=== PATIENT | female | born 1975 | race Caucasian/White ===

== ENCOUNTER 2017-05-02 08:07 | Emergency (ER) | payer OTHER ==
[~2017-05-02] VITALS: Ht 165.1 cm; Wt 90.0 kg
[~2017-05-02 08:07] MED LIST: ALBU17I INH; AMOX500T PO; B VITAMINS PO; DICY20TA10 PO; DILA100C PO; FOLI1 PO; IBUP100S PO; IMOD2TAB PO; LITH300 PO; SERO200T PO; TOPA200T4 OR; ZOLO100T OR; [UNRECOGNIZED DRUG - CODE] PO
[2017-05-02 08:15] VITALS: BP 143/76; PULSE 87; RESP 18; TEMP 99.3; O2SAT 100
[2017-05-02] MEDS ORDERED: SODIUM CHLOR 0.9% 1000 ML INJ 1,000 ML IV ONE (08:18)
--- NOTE | 2017-05-02 08:26 | PD ---
HPI Chief Complaint: Seizure Time Seen by Provider: 08:22 Travel History International Travel<30 days: No Contact w/Intl Traveler<30days: No History of Present Illness HPI 41yo F with PMH of seizure disorder presents to the ED with c/o episode of seizure a few hours ago. Said she has been sleeping in a car and has been out of her depakote for 3 days. Does not remember the dose of her depakote. Pt was sleeping in her car when her associate professor of law witnessed the seizure. Denies any head trauma, fever, chest pain, sob, vomiting, abdominal pain, focal weakness or numbness. Pt has not been feeling well and has not eaten for 3 days. Said she feels a little nauseous. Also with some lower back pain that is worst with movement and thinks it is from sleeping in the car. Pt said she was admitted to [facility] recently for pyelonephritis. 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) Allergies-Medications (Allergen,Severity, Reaction): Coded Allergies: codeine (Unverified Allergy, Severe, 05/02/17) Reported Meds & Prescriptions Reported Meds & Active Scripts Active Dicyclomine Hcl (Dicyclomine HCl) 20 Mg Tab 20 Mg PO 2 TABS BID Proventil Mdi (Albuterol Sulfate) 17 Gm Aero 1 Puff INH Q6 Loperamide Hcl (Loperamide HCl) 2 Mg Tab 2 Mg PO QIDPRN Folate 1 Mg Tab (Folic Acid) 1 Mg Tab 1 Mg PO DAILY [b12 vitamins] 1 Tab PO BID Topamax (Topiramate) 200 Mg Tab 200 Mg OR DAILY Dilantin 100 Mg Vial (Phenytoin Sodium) 100 Mg/2 Ml Inj 100 Mg PO 2 CAPS AM, 3 CAPS PM Reported Motrin (Ibuprofen) 100 Mg/5 Ml Susp 200 Mg PO DIRECTED Amoxicillin 500 Mg Tab 500 Mg PO DIRECTED [place] Carbonate 300 Mg Tab 300 Mg PO TID Zoloft (Sertraline Hcl) 100 Mg Tab 100 Mg OR BID Seroquel (Quetiapine Fumarate) 200 Mg Tab 200 Mg PO HS Dicyclomine Hcl (Dicyclomine HCl) 20 Mg Tab 40 Mg PO BID Dilantin Kapseals (Phenytoin Sodium) 100 Mg Cap 300 Mg PO HS Dilantin Kapseals (Phenytoin Sodium) 100 Mg Cap 200 Mg PO DAILY Review of Systems Except as stated in HPI: all other systems reviewed are Neg Physical Exam Narrative GENERAL: 41yo F in mild distress. SKIN: Focused skin assessment warm/dry. HEAD: Atraumatic. Normocephalic. EYES: Pupils equal and round at 3mm bilaterally. EOMI. ENT: No nasal bleeding or discharge. Mucous membranes pink and moist. NECK: Trachea midline. No JVD. No midline cervical spine ttp. CARDIOVASCULAR: Regular rate and rhythm. No murmur appreciated. RESPIRATORY: No accessory muscle use. Clear to auscultation. Breath sounds equal bilaterally. GASTROINTESTINAL: Abdomen soft, non-tender, nondistended. No rebound tenderness or guarding. BACK: No midline thoracic or lumbar ttp. MUSCULOSKELETAL: No obvious deformities. No clubbing. No cyanosis. No edema. NEUROLOGICAL: Awake and alert. No obvious cranial nerve deficits. Motor grossly within normal limits. Sensation intact. Normal speech. Data Data Last Documented VS Vital Signs Date Time Temp Pulse Resp B/P (MAP) Pulse Ox O2 Delivery O2 Flow Rate FiO2 05/02/17 08:15 99.3 87 18 143/76 (98) 100 Orders Orders Complete Blood Count With Diff (05/02/17 08:18) Valproic Acid (Depakene) (05/02/17 08:18) Blood Glucose (05/02/17 08:18) Comprehensive Metabolic Panel (05/02/17 08:18) Sodium Chlor 0.9% 1000 Ml Inj (Ns 1000 M (05/02/17 08:18) Ua Includes Microscopic (05/02/17 08:18) Ed Urine Pregnancytest Poc (05/02/17 08:18) Magnesium (Mg) (05/02/17 08:18) Ondansetron Inj (Zofran Inj) (05/02/17 08:30) Ceftriaxone Inj (Rocephin Inj) (05/02/17 11:30) Divalproex Er (Depakote Er) (05/02/17 11:30) Ketorolac Inj (Toradol Inj) (05/02/17 11:30) Labs Laboratory Tests Test 05/02/17 08:40 White Blood Count 3.5 TH/MM3 Red Blood Count 4.27 MIL/MM3 Hemoglobin 13.6 GM/DL Hematocrit 39.3 % Mean Corpuscular Volume 92.1 FL Mean Corpuscular Hemoglobin 31.8 PG Mean Corpuscular Hemoglobin Concent 34.5 % Red Cell Distribution Width 14.3 % Platelet Count 180 TH/MM3 Mean Platelet Volume 8.1 FL Neutrophils (%) (Auto) 61.9 % Lymphocytes (%) (Auto) 21.8 % Monocytes (%) (Auto) 10.7 % Eosinophils (%) (Auto) 4.2 % Basophils (%) (Auto) 1.4 % Neutrophils # (Auto) 2.1 TH/MM3 Lymphocytes # (Auto) 0.8 TH/MM3 Monocytes # (Auto) 0.4 TH/MM3 Eosinophils # (Auto) 0.1 TH/MM3 Basophils # (Auto) 0.0 TH/MM3 CBC Comment DIFF FINAL Differential Comment Urine Color YELLOW Urine Turbidity CLEAR Urine pH 5.0 Urine Specific [place] 1.011 Urine Protein NEG mg/dL Urine Glucose (UA) NEG mg/dL Urine Ketones TRACE mg/dL Urine Occult Blood LARGE Urine Nitrite POS Urine Bilirubin NEG Urine Urobilinogen LESS THAN 2.0 MG/DL Urine Leukocyte Esterase NEG Urine RBC /hpf Urine WBC 2 /hpf Urine Squamous Epithelial Cells <1 /hpf Urine Bacteria RARE /hpf Urine Hyaline Casts 1 /lpf Blood Urea Nitrogen 6 MG/DL Creatinine 0.52 MG/DL Random Glucose 80 MG/DL Total Protein 7.0 GM/DL Albumin 3.2 GM/DL Calcium Level 8.4 MG/DL Magnesium Level 2.0 MG/DL Alkaline Phosphatase 134 U/L Aspartate Amino Transf (AST/SGOT) 39 U/L Alanine Aminotransferase (ALT/SGPT) 21 U/L Total Bilirubin 1.2 MG/DL Sodium Level 138 MEQ/L Potassium Level 4.2 MEQ/L Chloride Level 104 MEQ/L Carbon Dioxide Level 25.5 MEQ/L Anion Gap 9 MEQ/L Estimat Glomerular Filtration Rate 130 ML/MIN Valproic Acid (Depakene) Level 3 MCG/ML [facility] Medical Decision Making Medical Screen Exam Complete: Yes Emergency Medical Condition: Yes Differential Diagnosis Seizure secondary to noncompliance with medication vs. homelessness vs. dehydration vs. electrolyte abnormality vs. UTI Narrative Course 41yo F with seizure disorder here after having a seizure at home. Pt has not been taking her depakote for 3 days. No signs of head trauma. Pt has lower back pain from sleeping in a car. No red flags. Labs reviewed, WBC 3.5, at baseline. AST and alk phos mildly elevated. Pt has no abdominal pain. Valproic acid level low which is expected. Pt given depakote 500mg PO. She does not remember her exact dose. UA positive for nitrite. Pt given ceftriaxone. Pt also given toradol for back pain with improvement. materials manager called to give her resources. Return precautions given. Diagnosis Primary Impression: Seizure Additional Impression: UTI (urinary tract infection) Qualified Codes: N39.0 - Urinary tract infection, site not specified; R31.9 - Hematuria, unspecified Patient Instructions: General Instructions Departure Forms: Tests/Procedures Additional Instructions: Please follow up with your primary care physician in 3-7 days. Return to the ED if symptoms worsen. Med/Other Pt SpecificInfo: Prescription(s) given Scripts Divalproex (Depakote DR) 500 Mg Tabdr 500 MG PO BID for Control Seizures, #30 TAB 0 Refills Prov: Cele Oliva DO 05/02/17 Nitrofurantoin Monohydrate Macrocrystals (Macrobid) 100 Mg Capsule 100 MG PO BID for Infection for 5 Days, #10 CAP 0 Refills Prov: Cele Oliva DO 05/02/17 Disposition: 01 DISCHARGE HOME Condition: Stable Cele Oliva DO May 02, 2017 08:26
[2017-05-02] MEDS ORDERED: ONDANSETRON HCL 4 MG/2 ML VIAL IV PUSH ONE (08:30)
[2017-05-02 09:14] LABS: AUTOMATED NEUTROPHIL # 2.1 TH/MM3 (1.8-7.7); BASOPHIL % 1.4 % (0.0-2.0); EOSINOPHIL # 0.1 TH/MM3 (0-0.4); EOSINOPHIL % 4.2 % (0.0-4.0); HEMATOCRIT 39.3 % (35.0-46.0); HEMOGLOBIN 13.6 GM/DL (11.6-15.3); LYMPH % 21.8 % (9.0-44.0); LYMPHOCYTE # 0.8 TH/MM3 (1.0-4.8); MEAN CELL VOLUME 92.1 FL (80.0-100.0); MEAN CORPUSCULAR HEMOGLOBIN 31.8 PG (27.0-34.0); MEAN CORPUSCULAR HGB CONC 34.5 % (32.0-36.0); MEAN PLATELET VOLUME 8.1 FL (7.0-11.0); MONO % 10.7 % (0.0-8.0); MONOCYTE # 0.4 TH/MM3 (0-0.9); NEUT % 61.9 % (16.0-70.0); PLATELET COUNT 180 TH/MM3 (150-450); RED BLOOD COUNT 4.27 MIL/MM3 (4.00-5.30); RED CELL DISTRIBUTION WIDTH 14.3 % (11.6-17.2); WHITE BLOOD COUNT 3.5 TH/MM3 (4.0-11.0)
[2017-05-02 09:20] LABS: BACTERIA, URINE RARE /hpf; BILIRUBIN, URINE NEG (NEG); BLOOD, URINE LARGE (NEG); GLUCOSE,URINE NEG (NEG); HYALINE CAST, URINE 1 /lpf (RARE); KETONE, URINE TRACE mg/dL (NEG); NITRITE,URINE POS (NEG); SQUAMOUS EPITHELIAL CELL URINE <1 /hpf (0-5); URINE COLOR YELLOW (YELLW/STRAW); URINE LEUKOCYTE ESTERASE NEG (NEG)
[2017-05-02 09:33] LABS: ALT (GPT) 21 U/L (10-53)
[2017-05-02 09:34] LABS: ALBUMIN 3.2 GM/DL (3.4-5.0); AST (GOT) 39 U/L (15-37); BICARBONATE 25.5 MEQ/L (21.0-32.0); BLOOD UREA NITROGEN 6 MG/DL (7-18); CALCIUM 8.4 MG/DL (8.5-10.1); CHLORIDE 104 MEQ/L (98-107); CREATININE 0.52 MG/DL (0.50-1.00); GLOMERULAR FILTRATION RATE 130 ML/MIN (>89); GLUCOSE,RANDOM 80 MG/DL (74-106); SODIUM (NA) 138 MEQ/L (136-145)
[2017-05-02 09:36] LABS: ALKALINE PHOSPHATASE 134 U/L (45-117); TOTAL BILIRUBIN ADULT 1.2 MG/DL (0.2-1.0)
[2017-05-02] MEDS ORDERED: cefTRIAXone INJ 1,000 MG in SODIUM CHLORIDE 0.9% INJ 100 ML IV ONE (11:30)
[2017-05-02] MEDS ORDERED: DIVALPROEX SODIUM E.R. 500 MG TAB PO ONE (11:30)
[2017-05-02] MEDS ORDERED: KETOROLAC TROMETHAMINE 30 MG/ML (IVP) VIAL IV PUSH ONE (11:30)
[2017-05-02] MEDS ORDERED: DEPA500T PO (12:01)
[2017-05-02] MEDS ORDERED: MACR100C2 PO (12:01)
[2017-05-02 13:15] VITALS: RESP 18
[2017-05-02 13:20] VITALS: BP 120/72
== END 2017-05-02 14:02 | disposition home or self-care (01) ==
LOC: NEPC 08:07
DX: G40.909 Epilepsy, unspecified, not intractable, without status epilepticus (principal); N39.0 Urinary tract infection, site not specified; R31.9 Hematuria, unspecified; R11.0 Nausea; M54.5 Low back pain; F31.9 Bipolar disorder, unspecified; Z72.0 Tobacco use
CPT/HCPCS: 80053; 80164; 81001; 83735; 84703; 85025; 96361; 96365; 96375; 99284; J0696; J1885; J2405; J7030

== ENCOUNTER 2018-01-02 15:59 | Inpatient (IN) ==
[2018-01-02 18:21] LABS: Baso % (Auto) 0.7 % (0.0-2.0); Eos # (Auto) 0.1 th/mm3 (0.0-0.4); Hematocrit 36.2 % (35.0-46.0); Hemoglobin 12.2 gm/dL (11.6-15.3); Lymph # (Auto) 1.3 th/mm3 (1.0-4.8); Lymph % (Auto) 35.4 % (9.0-44.0); Mean Corpuscular HGB Conc 33.6 % (32.0-36.0); Mean Corpuscular Hemoglobin 32.7 pg (27.0-34.0); Mean Corpuscular Volume 97.4 fL (80.0-100.0); Mean Platelet Volume 8.6 fL (7.0-11.0); Mono # (Auto) 0.2 th/mm3 (0.0-0.9); Mono % (Auto) 5.9 % (0.0-8.0); Neut # (Auto) 1.9 th/mm3 (1.8-7.7); Platelet Count 173 th/mm3 (150-450); Red Blood Count 3.72 mil/mm3 (4.00-5.30); Red Cell Distribution Width 13.9 % (11.6-17.2); White Blood Count 3.6 th/mm3 (4.0-11.0)
[2018-01-02 18:26] LABS: Albumin 3.2 g/dL (3.4-5.0); Anion Gap 12 meq/L (5-15); Aspartate Aminotransferase 31 U/L (15-37); Blood Urea Nitrogen 11 mg/dL (7-18); Calcium 7.9 mg/dL (8.5-10.1); Carbon Dioxide 22.6 meq/L (21.0-32.0); Chloride 112 meq/L (98-107); Glomerular Filtration Rate Greater Than 89 mL/min (>89); Glucose,Random 87 mg/dL (74-106); Potassium 3.9 meq/L (3.5-5.1); Sodium 147 meq/L (136-145)
[2018-01-02 18:38] LABS: Alanine Aminotransferase 22 U/L (10-53); Alkaline Phosphatase 132 U/L (45-117); Total Protein 6.4 g/dL (6.4-8.2)
[2018-01-02] MEDS ORDERED: Tetanus/Diphtheria Toxoid Adult Vaccine Inj 0.5 ML Vial IM ONE (18:38)
[2018-01-02] MEDS ORDERED: Lidocaine 5% Patch T-DERMAL ONE (18:38)
--- NOTE | 2018-01-02 18:46 | ED ---
HPI General Chief Complaint: Medical Clearance Stated Complaint: psych eval/[place] [facility] Time Seen by Provider: 01/02/18 16:51 Source: patient and police Mode of arrival: other (Police) Limitations: no limitations History of Present Illness HPI Narrative: Patient is a 42-year-old female presenting to emerge from under [employer] for psychiatric evaluation. Patient reports that she is homeless, she is currently off of her medications. She states that she is not a street person, she reports feeling down and out and suicidal. She states it she started binge drinking. Per the [employer] report patient may contact with the police and advised him she no longer wanted to live. Patient advised the police that she attempted to cut herself. Please observe several scratches on the patient. She was placed in handcuffs which were checked for tightness and double locked. She was transported here to [place]. Patient's tetanus vaccine is not up-to-date. She reports left knee pain, she reports that she was told she need to see an orthopedic surgeon. Pain is worse due to increased walking. She reports that she was in [facility] on and diagnosed with urinary tract infection, she did not have the antibiotic prescription filled. Patient reports feeling suicidal at this time. He reports 8 out of 10 pain in her left knee, constant, aching and throbbing in nature. No alleviating factors , worse with weightbearing. No recent injury or trauma. MD complaint: suicidal ideation Onset (ago): day(s) Duration: constant Context: significant life stressor Associated psychiatric symptoms: depression and suicidal ideation Associated symptoms: denies other symptoms Treatments prior to arrival: none If self harm: admits thoughts of self harm and self-inflicted trauma Related Data Previous Rx's Medication Instructions Recorded cephalexin [Keflex] 500 mg PO BID 7 Days #14 cap 01/02/18 Allergies Allergy/AdvReac Type Severity Reaction Status Date / Time codeine Allergy Severe Unverified 05/02/17 09:11 Review of Systems ROS: all other systems reviewed are negative PMFSH History History Provided By: Patient Medical History Medical History Depression (Acute) Social History Social History Recent Travel in [facility] within the Last 8 Weeks: No Recent Out of Country Travel within the Last 8 Weeks: No Exam Narrative Exam Narrative: GENERAL: Overweight, well-developed, alert female. Presenting in no acute distress. SKIN: Focused skin assessment warm/dry. Superficial abrasion to left inner forearm. HEAD: Atraumatic. Normocephalic. EYES: Pupils equal and round. No scleral icterus. No injection or drainage. ENT: No nasal bleeding or discharge. Mucous membranes pink and moist. NECK: Trachea midline. No JVD. CARDIOVASCULAR: Regular rate and rhythm. No murmur appreciated. RESPIRATORY: No accessory muscle use. Clear to auscultation. Breath sounds equal bilaterally. GASTROINTESTINAL: Abdomen soft, non-tender, nondistended. Hepatic and splenic margins not palpable. MUSCULOSKELETAL: No obvious deformities. No clubbing. No cyanosis. No edema. NEUROLOGICAL: Awake and alert. No obvious cranial nerve deficits. Motor grossly within normal limits. Normal speech. PSYCHIATRIC: Depressed mood and affect; insight and judgment normal. Course Initial Documented Vital Signs Temperature 98.0 F 01/02/18 16:01 Pulse Rate 87 01/02/18 16:01 Respiratory Rate 16 01/02/18 16:01 Blood Pressure 138/92 H 01/02/18 16:01 Pulse Oximetry 98 01/02/18 16:01 Last Documented Vital Signs Temperature 98.0 F 01/02/18 16:01 Pulse Rate 87 01/02/18 16:01 Respiratory Rate 16 01/02/18 16:01 Blood Pressure 138/92 H 01/02/18 16:01 Pulse Oximetry 98 01/02/18 16:01 Medical Decision Making [facility] Narrative Medical decision making narrative: Patient is a well-appearing 42-year-old female presented under [place] [facility] due to suicidal ideations. Mental health screening discussed with the patient. Psychiatric screen ordered. Patient attempted to cut herself with a piece of metal. Tetanus vaccine will be updated at this time. Lidoderm patch ordered for left knee pain. Will reassess the urinalysis and start antibiotics empirically if positive. Urinalysis is consistent with a urinary tract infection, reflex culture pending. Patient will be started on Keflex empirically. Patient is medically cleared for psychiatric evaluation. Medical Screen Exam Complete: Yes Emergency Medical Condition: Yes Differential Diagnosis Differential Diagnosis: Mood disorder versus psychosis versus suicidal ideations versus UTI versus other Medical Records Medical records reviewed: Yes I reviewed the patient's medical records. Lab Data Lab results reviewed: Yes I reviewed the patient's lab results. Result diagrams: 01/02/18 17:21 01/02/18 17:21 Lab Results 01/02/18 01/02/18 01/02/18 Range/Units 17:21 17:21 17:34 WBC 3.6 L (4.0-11.0) th/mm3 RBC 3.72 L (4.00-5.30) mil/mm3 Hgb 12.2 (11.6-15.3) gm/dL Hct 36.2 (35.0-46.0) % MCV 97.4 (80.0-100.0) fL MCH 32.7 (27.0-34.0) pg MCHC 33.6 (32.0-36.0) % RDW 13.9 (11.6-17.2) % Plt Count 173 (150-450) th/mm3 MPV 8.6 (7.0-11.0) fL Neut % (Auto) 54.0 (16.0-70.0) % Lymph % (Auto) 35.4 (9.0-44.0) % [place] % (Auto) 5.9 (0.0-8.0) % Eos % (Auto) 4.0 (0.0-4.0) % Baso % (Auto) 0.7 (0.0-2.0) % Neut # (Auto) 1.9 (1.8-7.7) th/mm3 Lymph # (Auto) 1.3 (1.0-4.8) th/mm3 [place] # (Auto) 0.2 (0.0-0.9) th/mm3 Eos # (Auto) 0.1 (0.0-0.4) th/mm3 Baso # (Auto) 0.0 (0.0-0.2) th/mm3 WBC Differential . Differential Comment Auto diff final Sodium 147 H (136-145) meq/L Potassium 3.9 (3.5-5.1) meq/L Chloride 112 H (98-107) meq/L Carbon Dioxide 22.6 (21.0-32.0) meq/L Anion Gap 12 (5-15) meq/L BUN 11 (7-18) mg/dL Creatinine 0.53 (0.50-1.00) mg/dL Estimated GFR Greater than 89 (>89) mL/min Random Glucose 87 (74-106) mg/dL Calcium 7.9 L (8.5-10.1) mg/dL Total Bilirubin 0.3 (0.2-1.0) mg/dL AST 31 (15-37) U/L ALT 22 (10-53) U/L Alkaline Phosphatase 132 H (45-117) U/L Total Protein 6.4 (6.4-8.2) g/dL Albumin 3.2 L (3.4-5.0) g/dL TSH 1.770 (0.358-3.740) uIU/mL Urine Color Yellow (Yellw/Straw) Urine Clarity Hazy H (Clear) Urine pH 5.0 (5.0-8.5) Ur Specific [place] 1.020 (1.002-1.035) Urine Protein Negative (Neg-Trace) mg/dL Urine Glucose (UA) Negative (Negative) mg/dL Urine Ketones Trace H (Negative) mg/dL Urine Occult Blood Negative (Negative) Urine Nitrate Negative (Negative) Urine Bilirubin Negative (Negative) Urine Urobilinogen 2.0 H (Less than 2) mg/dL Ur Leukocyte Esterase Negative (Negative) Urine RBC 1 (0-3) /hpf Urine WBC 3 (0-5) /hpf Ur Squamous Epith Cells 1 (0-5) /hpf Urine Bacteria Moderate H (None) /hpf Hyaline Casts 16 (0-3) /lpf Urine Mucus Few H (Occasional) /lpf Micro UA Comment Culture indicated Ur Microscopic Review Not Reportable Urine Culture Comments Culture indicated Serum Alcohol 153 H (0-5) mg/dL Discharge Plan Discharge Disposition Patient Disposition: 30 Still Patient Discharge Condition Condition: Stable Discharge Details Diagnosis: Medical clearance for psychiatric admission, UTI (urinary tract infection) Physicians Team ED Provider: Penny Cole ED Midlevel Provider: Amy Crook Primary Care Provider: Primary Care Verenice Allen Rxs /Orders / Referrals /Forms Prescriptions: New cephalexin [Keflex] 500 mg capsule 500 mg PO BID 7 Days Qty: 14 RF: 0 Discharge Instructions Patient Printed Instructions: Urinary Tract Infection in Women (ED) Status ED Status: Medically Cleared
[2018-01-02 18:59] LABS: Alcohol 153 mg/dL (0-5)
[2018-01-02 20:23] LABS: Bacteria,Urine Moderate /hpf; Bilirubin,Urine Negative (Negative); Clarity,Urine Hazy (Clear); Color,Urine Yellow (Yellw/Straw); Glucose,Urine (UA) Negative (Negative); Hyaline Casts,Urine 16 /lpf (0-3); Leukocyte Esterase,Urine Negative (Negative); Mucus,Urine Few /lpf (Occasional); Nitrite,Urine Negative (Negative); Squamous Epithelial Cell,Urine 1 /hpf (0-5)
[2018-01-02 20:24] LABS: Amphetamine Screen,Urine Neg (Neg); Barbiturate Screen,Urine Neg (Neg); Cannabinoid Screen,Urine Neg (Neg); Cocaine Screen,Urine Neg (Neg)
[2018-01-02 20:41] LABS: Opiate Screen,Urine Neg (Neg)
[2018-01-02] MEDS ORDERED: Aluminum/Magnesium/Simethacone Susp 30 ML UDC PO PRN (23:37)
[2018-01-02] MEDS ORDERED: LORazepam 1 MG Tablet PO PRN (23:37)
[2018-01-02] MEDS ORDERED: Acetaminophen 325 MG Tablet PO PRN (23:37)
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
[2018-01-03] MEDS ORDERED: Ibuprofen 400 MG Tablet PO ONE (11:45)
--- NOTE | 2018-01-03 14:51 | P.CONNEU ---
History of Present Illness Service: Neurology Primary Care Provider: No Primary Care Physician Family Provider: No Primary Care Physician Chief Complaint: History of seizure History of Present Illness: 42-year-old history of ethanolism, benzo withdrawal seizure, mood disorder Keri laird. Psychiatry consult neurology for "" abnormal EEG" and recommendation on seizure medication [facility] - History History Provided By: Patient - Medical History Medical History: Medical History (Last Reviewed 01/02/18 @ 18:44 by RUDOLPH Faulkner) Depression - Tobacco History Second Hand Smoke Exposure: No Smoking Status: Never smoker - Alcohol History How Often Do You Have a Drink Containing Alcohol: Monthly or less - Substance Use History Substance History: No History of Abuse, Active Abuse - Substance Use Type Alcohol Status: Active Route Used: Inhalation Frequency: amount flutuates based on finances, daily, beer Reason for Use: Calm Down, Sleep Comment: Patient reports she drinks to help sleep and to stop the racing thoughts. Patient reports she doesn't even like to drink. - Travel History Recent Travel in the [facility] Within the Last 8 Weeks: No Recent Travel Out of the Country Within the Last 8 Weeks: No - Immunization History Tetanus Immunization: <5 Years Tetanus Immunization Year if Known: 2018 Medications and Allergies Active Medications: Active Medications Acetaminophen (Tylenol) 650 mg PO Q4H PRN PRN Reason: Pain 1-5 or Temp >101F Al Hydrox/Mg Hydrox/Simethicone (Mag-Al Plus Susp Liq) 30 ml PO Q6H PRN PRN Reason: DYSPEPSIA Al Hydroxide/Mg Hydroxide (Milk Of Magnesia Liq) 30 ml PO Q12H PRN PRN Reason: Mild Constipation Cephalexin Monohydrate (Keflex) 500 mg PO BID [facility] Stop: 01/09/18 21:01 Last Admin: 01/03/18 08:37 Dose: 500 mg Flumazenil (Romazecon Inj) 0.2 mg IV.PUSH Q1M PRN PRN Reason: OVERSEDATION Folic Acid (Folic Acid) 1 mg PO DAILY [facility] Hydroxyzine HCl (Atarax) 50 mg PO Q6H PRN PRN Reason: ANXIETY [place] Carbonate ([place] Carbonate) 300 mg PO BID [facility] Lorazepam (Ativan) 1 mg PO Q4H PRN PRN Reason: for CIWA 8-10 Lorazepam (Ativan) 2 mg PO Q2H PRN PRN Reason: for CIWA 11-14 Lorazepam (Ativan Inj) 2 mg IV.PUSH Q2H PRN PRN Reason: for CIWA 11-14 Lorazepam (Ativan Inj) 2 mg IV.PUSH Q1H PRN PRN Reason: for CIWA 15-20 Lorazepam (Ativan Inj) 2 mg IV.PUSH Q15M PRN PRN Reason: for CIWA > 20 Lorazepam (Ativan Inj) 1 mg IV.PUSH Q4H PRN PRN Reason: for CIWA 8-10 Melatonin (Melatonin) 5 mg PO HS PRN PRN Reason: INSOMNIA Patch Removal (Remove Old Patch) 1 each T-DERMAL HS IKE Quetiapine Fumarate (Seroquel) 100 mg PO BID IKE Thiamine HCl (Vitamin B1) 100 mg PO DAILY IKE Allergies Allergy/AdvReac Type Severity Reaction Status Date / Time codeine Allergy Severe Hives Verified 01/02/18 21:14 Exam Vital signs: Vital Signs 01/02/18 16:01 01/03/18 00:00 01/03/18 06:00 Temperature 98.0 F 98.2 F 98.6 F Pulse Rate 87 104 H 89 Respiratory Rate 16 20 17 Blood Pressure 138/92 H 134/81 134/78 Pulse Oximetry 98 95 99 Intake & Output 01/02/18 01/03/18 01/03/18 18:59 06:59 18:59 Weight 81.647 kg 84.5 kg Other: Weight On Admission 84.5 kg Results - Labs CBC & Chem 7: 01/02/18 17:21 01/02/18 17:21 Labs: Laboratory Results - last 24 hr 01/02/18 01/02/18 01/02/18 17:21 17:21 17:34 WBC 3.6 L RBC 3.72 L Hgb 12.2 Hct 36.2 MCV 97.4 MCH 32.7 MCHC 33.6 RDW 13.9 Plt Count 173 MPV 8.6 Neut % (Auto) 54.0 Lymph % (Auto) 35.4 [place] % (Auto) 5.9 Eos % (Auto) 4.0 Baso % (Auto) 0.7 Neut # (Auto) 1.9 Lymph # (Auto) 1.3 [place] # (Auto) 0.2 Eos # (Auto) 0.1 Baso # (Auto) 0.0 WBC Differential . Differential Comment Auto diff final Sodium 147 H Potassium 3.9 Chloride 112 H Carbon Dioxide 22.6 Anion Gap 12 BUN 11 Creatinine 0.53 Estimated GFR Greater than 89 Random Glucose 87 Calcium 7.9 L Total Bilirubin 0.3 AST 31 ALT 22 Alkaline Phosphatase 132 H Total Protein 6.4 Albumin 3.2 L TSH 1.770 Urine Color Urine Clarity Urine pH Ur Specific [place] Urine Protein Urine Glucose (UA) Urine Ketones Urine Occult Blood Urine Nitrate Urine Bilirubin Urine Urobilinogen Ur Leukocyte Esterase Urine RBC Urine WBC Ur Squamous Epith Cells Urine Bacteria Hyaline Casts Urine Mucus Micro UA Comment Ur Microscopic Review Urine Culture Comments Urine Opiates Screen Neg Ur Barbiturates Screen Neg Ur Amphetamines Screen Neg U Benzodiazepines Scrn Neg Urine Cocaine Screen Neg U Cannabinoids Screen Neg Serum Alcohol 153 H 01/02/18 17:34 WBC RBC Hgb Hct MCV MCH MCHC RDW Plt Count MPV Neut % (Auto) Lymph % (Auto) [place] % (Auto) Eos % (Auto) Baso % (Auto) Neut # (Auto) Lymph # (Auto) [place] # (Auto) Eos # (Auto) Baso # (Auto) WBC Differential Differential Comment Sodium Potassium Chloride Carbon Dioxide Anion Gap BUN Creatinine Estimated GFR Random Glucose Calcium Total Bilirubin AST ALT Alkaline Phosphatase Total Protein Albumin TSH Urine Color Yellow Urine Clarity Hazy H Urine pH 5.0 Ur Specific [place] 1.020 Urine Protein Negative Urine Glucose (UA) Negative Urine Ketones Trace H Urine Occult Blood Negative Urine Nitrate Negative Urine Bilirubin Negative Urine Urobilinogen 2.0 H Ur Leukocyte Esterase Negative Urine RBC 1 Urine WBC 3 Ur Squamous Epith Cells 1 Urine Bacteria Moderate H Hyaline Casts 16 Urine Mucus Few H Micro UA Comment Culture indicated Ur Microscopic Review Not Reportable Urine Culture Comments Culture indicated Urine Opiates Screen Ur Barbiturates Screen Ur Amphetamines Screen U Benzodiazepines Scrn Urine Cocaine Screen U Cannabinoids Screen Serum Alcohol Review/Management - Diagnosis (1) Bipolar disorder, current episode depressed, severe, without psychotic features Code(s): F31.4 - Bipolar disorder, current episode depressed, severe, without psychotic features Status: Acute Current Visit: Yes (2) Alcohol use disorder, moderate, dependence Code(s): F10.20 - Alcohol dependence, uncomplicated Status: Acute Current Visit: Yes - Review/Management Plan: Previous records indicates she has been on Depakote for seizure. Unclear if she has true seizures whether or whether these episodes have been related to ethanol or benzodiazepine withdrawal Recommendations check EEG She can be restarted on Depakote may help her mood control and possibility of underlying seizure No driving Please call us if needed
--- NOTE | 2018-01-03 15:07 | XR ---
EXAM DATE: 01/03/2018 3:05 PM EDT AGE/SEX: 42 years / Female INDICATIONS: Left knee joint pain. Patient states her left leg made a popping sound and gave out. CLINICAL DATA: This is the patient's initial encounter. Patient reports that signs and symptoms have been present for 4 - 6 days and indicates a pain score of 10/10. MEDICAL/SURGICAL HISTORY: . H/O falling 2 months ago. Left knee pain. None. COMPARISON: No prior exams available for comparison. FINDINGS: Bony structures are intact and in normal alignment. Joints are intact without dislocation or signifi cant arthropathy. Osseous density is normal. Soft tissues are unremarkable. No radiopaque foreign bodies seen. CONCLUSION: No evidence of recent bony injury. Electronically signed by: Carlos Sanchez MD 01/03/2018 3:06 PM EDT
--- NOTE | 2018-01-03 15:23 | P.CON ---
History of Present Illness Service: Hospitalist Consult date: 01/03/18 Requesting Physician: Bryant Millan Reason for Consult: Assist with medical management Primary Care Provider: No Primary Care Physician Family Provider: No Primary Care Physician Chief Complaint: History of seizure History of Present Illness: This is a 42-year-old female with a past medical history significant for depression, anxiety, PTSD, alcohol abuse, history of gastric bypass with chronic abdominal pain, osteoarthritis of bilateral knees and history of benzodiazepine withdrawal seizures who presented to [facility] ED under Saavedra act for suicidal ideation. Patient since been admitted to inpatient psychiatric unit and hospitalist services have been consulted to assist with medical management. Patient seen and examined. Patient states she has also arthritis of both knees due to being obese with a weight of over 400 pounds which is what qualified her for gastric bypass surgery 12 years ago. She states that 2 months ago she injured the left knee and has had pain with ambulation only. Patient has recently become homeless and as result has been walking a lot more. This past Monday she felt and heard a pop in her knee and since then has been having constant pain in the left knee, swelling and instability. She has been using a walker to assist with ambulation. She was seen at the Hospital in [place] and had a ultrasound done which was negative for DVT. She was diagnosed with urinary tract infection and started on Keflex at that time. Patient states that she has begun to abuse alcohol since she has become homeless and usually drinks two 4 packs a day. Her last alcoholic beverage was yesterday. Review of Systems All other systems reviewed negative except as stated in HPI PMFSH - History History Provided By: Patient - Medical History Medical History: Medical History (Last Updated 01/03/18 @ 15:08 by Crissy Aly) Anxiety Benzodiazepine abuse in remission Depression Obesity (BMI 30.0-34.9) Osteoarthritis of both knees PTSD (post-traumatic stress disorder) - Surgical History Surgical History: Surgical History (Last Updated 01/03/18 @ 15:08 by Crissy Aly) History of History of cholecystectomy History of gastric bypass - Family History Family History: Family History (Last Updated 01/03/18 @ 15:09 by Crissy Aly) Other Pancreatic cancer - Tobacco History Second Hand Smoke Exposure: No Smoking Status: Never smoker - Alcohol History How Often Do You Have a Drink Containing Alcohol: 4 or more times a week - Substance Use History Substance History: Active Abuse, Past History (hx of benzo diazepam abuse) - Substance Use Type Alcohol Type: Beer Status: Active Route Used: By Mouth Frequency: amount flutuates based on finances, daily, beer Reason for Use: Calm Down, Sleep Comment: Patient reports she drinks to help sleep and to stop the racing thoughts. Patient reports she doesn't even like to drink. - Travel History Recent Travel in the [place] Within the Last 8 Weeks: No Recent Travel Out of the Country Within the Last 8 Weeks: No - Immunization History Tetanus Immunization: <5 Years Tetanus Immunization Year if Known: 2017 Medications and Allergies Active Medications: Active Medications Acetaminophen (Tylenol) 650 mg PO Q4H PRN PRN Reason: Pain 1-5 or Temp >101F Al Hydrox/Mg Hydrox/Simethicone (Mag-Al Plus Susp Liq) 30 ml PO Q6H PRN PRN Reason: DYSPEPSIA Al Hydroxide/Mg Hydroxide (Milk Of Magnesia Liq) 30 ml PO Q12H PRN PRN Reason: Mild Constipation Cephalexin Monohydrate (Keflex) 500 mg PO BID [facility] Stop: 01/09/18 21:01 Last Admin: 01/03/18 08:37 Dose: 500 mg Divalproex Sodium (Depakote Er) 500 mg PO BID [facility] Flumazenil (Romazecon Inj) 0.2 mg IV.PUSH Q1M PRN PRN Reason: OVERSEDATION Folic Acid (Folic Acid) 1 mg PO DAILY [facility] Hydroxyzine HCl (Atarax) 50 mg PO Q6H PRN PRN Reason: ANXIETY [place] Carbonate ([place] Carbonate) 300 mg PO BID [facility] Lorazepam (Ativan) 1 mg PO Q4H PRN PRN Reason: for CIWA 8-10 Lorazepam (Ativan) 2 mg PO Q2H PRN PRN Reason: for CIWA 11-14 Lorazepam (Ativan Inj) 2 mg IV.PUSH Q2H PRN PRN Reason: for CIWA 11-14 Lorazepam (Ativan Inj) 2 mg IV.PUSH Q1H PRN PRN Reason: for CIWA 15-20 Lorazepam (Ativan Inj) 2 mg IV.PUSH Q15M PRN PRN Reason: for CIWA > 20 Lorazepam (Ativan Inj) 1 mg IV.PUSH Q4H PRN PRN Reason: for CIWA 8-10 Melatonin (Melatonin) 5 mg PO HS PRN PRN Reason: INSOMNIA Patch Removal (Remove Old Patch) 1 each T-DERMAL HS IKE Quetiapine Fumarate (Seroquel) 100 mg PO BID IKE Thiamine HCl (Vitamin B1) 100 mg PO DAILY IKE Allergies Allergy/AdvReac Type Severity Reaction Status Date / Time codeine Allergy Severe Hives Verified 01/02/18 21:14 Physical Exam Vital signs: Vital Signs 01/02/18 16:01 01/03/18 00:00 01/03/18 06:00 Temperature 98.0 F 98.2 F 98.6 F Pulse Rate 87 104 H 89 Respiratory Rate 16 20 17 Blood Pressure 138/92 H 134/81 134/78 Pulse Oximetry 98 95 99 Intake & Output 01/02/18 01/03/18 01/03/18 18:59 06:59 18:59 Weight 81.647 kg 84.5 kg Other: Weight On Admission 84.5 kg Narrative: GENERAL: Well-developed well-nourished obese female in no acute distress. Awake and alert. Oriented 4. SKIN: Warm and dry. HEAD: Atraumatic. Normocephalic. EYES: Pupils equal and round. No scleral icterus. No injection or drainage. ENT: No nasal bleeding or discharge. Mucous membranes pink and moist. Poor dentition. NECK: Trachea midline. CARDIOVASCULAR: Regular rate and rhythm. RESPIRATORY: No accessory muscle use. Clear to auscultation. Breath sounds equal bilaterally. GASTROINTESTINAL: Abdomen soft, non-tender, nondistended. Hepatic and splenic margins not palpable. MUSCULOSKELETAL: Extremities without clubbing, cyanosis, or edema. No obvious deformities. +Tenderness to palpation medial aspect of left knee. Decreased ROM. Unable to test laxity secondary to patients discomfort. NEUROLOGICAL: Awake and alert. No obvious cranial nerve deficits. Motor grossly within normal limits. Able to move all extremities spontaneously. Normal speech. PSYCHIATRIC: Appropriate mood and affect; insight and judgment normal. Assessment and Plan - Plan 42-year-old female noted under Saavedra act for suicidal ideation Depression Anxiety PTSD Suicidal ideation -Management per psychiatric team Acute on chronic left knee pain History of osteoarthritis bilateral knees -XR Left knee with no acute fractures -obtain MR left knee for further evaluation -PT eval/treat -Lidoderm patch Alcohol abuse History of benzodiazepine withdrawal seizure Serum alcohol 153 UDS neg -Neurology following. Resumed on Depakote for possible history of seizure disorder and mood control. EEG ordered. -[facility] protocol -Thiamine/multivitamin/folic acid daily -Monitor for seizure activity -seizure precautions UTI Dx'd at [facility] -Continue on oral Keflex -Repeat UA here with moderate bacteria, culture indicated. Will follow urine culture until finalized. DVT prophylaxis -Patient is ambulatory Thank you very kindly for this consultation. We will continue to follow patient along with you. Discussed Condition With: patient,nursing staff, Dr. Navarro
[2018-01-03] MEDS: Folic Acid 1 MG Tablet PO SCH (15:27)
[2018-01-03] MEDS: Divalproex 500 MG ER Tablet PO SCH ×2 (15:28→21:46)
[2018-01-03] MEDS: Ibuprofen 600 MG Tablet PO SCH ×2 (15:45→21:45)
[2018-01-03] MEDS: LORazepam 1 MG Tablet PO PRN (17:21)
[2018-01-03] MEDS ORDERED: Melatonin 5 MG Tablet PO PRN (21:00)
[2018-01-03] MEDS: Famotidine 20 MG Tablet PO SCH (21:45)
[2018-01-03] MEDS: QUEtiapine 100 MG Tablet PO SCH (21:47)
[2018-01-04] MEDS: Ibuprofen 600 MG Tablet PO SCH ×3 (06:09→22:00)
[2018-01-04 08:28] LABS: Baso % (Auto) 0.4 % (0.0-2.0); Eos # (Auto) 0.1 th/mm3 (0.0-0.4); Eos % (Auto) 2.8 % (0.0-4.0); Hematocrit 37.5 % (35.0-46.0); Hemoglobin 12.7 gm/dL (11.6-15.3); Lymph % (Auto) 38.2 % (9.0-44.0); Mean Corpuscular HGB Conc 33.9 % (32.0-36.0); Mean Corpuscular Hemoglobin 33.1 pg (27.0-34.0); Mean Corpuscular Volume 97.7 fL (80.0-100.0); Mean Platelet Volume 8.6 fL (7.0-11.0); Mono # (Auto) 0.2 th/mm3 (0.0-0.9); Mono % (Auto) 6.3 % (0.0-8.0); Neut # (Auto) 1.4 th/mm3 (1.8-7.7); Neut % (Auto) 52.3 % (16.0-70.0); Platelet Count 128 th/mm3 (150-450); Red Blood Count 3.84 mil/mm3 (4.00-5.30); Red Cell Distribution Width 14.2 % (11.6-17.2); White Blood Count 2.6 th/mm3 (4.0-11.0)
[2018-01-04 08:55] LABS: Albumin 2.9 g/dL (3.4-5.0); Anion Gap 9 meq/L (5-15); Aspartate Aminotransferase 21 U/L (15-37); Blood Urea Nitrogen 5 mg/dL (7-18); Calcium 8.2 mg/dL (8.5-10.1); Carbon Dioxide 27.5 meq/L (21.0-32.0); Chloride 108 meq/L (98-107); Glomerular Filtration Rate Greater Than 89 mL/min (>89); Glucose,Random 125 mg/dL (74-106); Potassium 3.3 meq/L (3.5-5.1); Sodium 144 meq/L (136-145)
[2018-01-04 08:56] LABS: Alanine Aminotransferase 17 U/L (10-53)
[2018-01-04 08:58] LABS: Alkaline Phosphatase 104 U/L (45-117); Total Protein 6.1 g/dL (6.4-8.2)
[2018-01-04] MEDS: Divalproex 500 MG ER Tablet PO SCH ×2 (09:09→20:27)
[2018-01-04] MEDS: Folic Acid 1 MG Tablet PO SCH (09:09)
[2018-01-04] MEDS: Famotidine 20 MG Tablet PO SCH ×2 (09:10→20:28)
[2018-01-04] MEDS: QUEtiapine 100 MG Tablet PO SCH (09:10)
[2018-01-04] MEDS: Lidocaine 5% Patch T-DERMAL SCH (09:11)
--- NOTE | 2018-01-04 11:05 | P.PN ---
Subjective Interval history: Follow-up on patient with left knee pain. Discussed with nursing staff. Patient continues to have significant pain in the left knee not well controlled. Difficulty with ambulation. Not much relief with Lidoderm patch and ibuprofen. X-ray left knee negative for acute fracture. Physical Exam Vital signs: Vital Signs 01/04/18 05:21 Temperature 97.6 F Pulse Rate 69 Respiratory Rate 17 Blood Pressure 113/58 L Pulse Oximetry 96 Narrative: Patient participating with group therapy Results - Labs CBC & Chem 7: 01/04/18 07:53 01/04/18 07:33 Laboratory Results - last 24 hr 01/03/18 01/04/18 01/04/18 13:54 07:33 07:53 WBC 2.6 L RBC 3.84 L Hgb 12.7 Hct 37.5 MCV 97.7 MCH 33.1 MCHC 33.9 RDW 14.2 Plt Count 128 L MPV 8.6 Neut % (Auto) 52.3 Lymph % (Auto) 38.2 Hill % (Auto) 6.3 Eos % (Auto) 2.8 Baso % (Auto) 0.4 Neut # (Auto) 1.4 L Lymph # (Auto) 1.0 Hill # (Auto) 0.2 Eos # (Auto) 0.1 Baso # (Auto) 0.0 WBC Differential . Differential Comment Auto diff final Sodium 144 Potassium 3.3 L Chloride 108 H Carbon Dioxide 27.5 Anion Gap 9 BUN 5 L Creatinine 0.53 Estimated GFR Greater than 89 Random Glucose 125 H Calcium 8.2 L Total Bilirubin 0.7 AST 21 ALT 17 Alkaline Phosphatase 104 Total Protein 6.1 L Albumin 2.9 L Beta HCG, Qual Less than 1.0 Microbiology 01/02/18 17:34 Clean Catch Urine Urine Culture - Final 50-100,000 cfu/mL mixed gram positive mohan (probable contaminants) - Imaging Impressions Knee X-Ray 01/03/18 00:00 CONCLUSION: No evidence of recent bony injury. Assessment and Plan - Plan 42-year-old female noted under Saavedra act for suicidal ideation Depression Anxiety PTSD Suicidal ideation -Management per psychiatric team Acute on chronic left knee pain History of osteoarthritis bilateral knees XR Left knee with no acute fractures -obtain MR left knee for further evaluation -continue with PT -Lidoderm patch -trial of scheduled NSAIDS -Ultram prn pain -fall precautions Alcohol abuse History of benzodiazepine withdrawal seizure Serum alcohol 153 UDS neg -Neurology following. Resumed on Depakote for possible history of seizure disorder and mood control. EEG ordered/pending. -[facility] protocol -Thiamine/multivitamin/folic acid daily -Monitor for seizure activity -seizure precautions Bacteruria -Repeat UA here with moderate bacteria, culture indicated. UCX + mixed gram pos mohan, likely contaminants. -Discontinue Keflex Neutropenia Thrombocytopenia Suspect 2/2 Keflex -Keflex discontinued as above -recheck CBC in 2-3 days Hypokalemia K 3.3 -po repletion ordered -repeat BMP in 2-3 days DVT prophylaxis -Patient is ambulatory Discussed Condition With: Patient, nursing staff, Dr. Mercado
[2018-01-04] MEDS: LORazepam 1 MG Tablet PO PRN (13:09)
--- NOTE | 2018-01-04 13:29 | P.PNPSY ---
Subjective Chief Complaint: Depression, suicide attempt by cutting Remarks: Patient seen and examined with counselor. Chart reviewed. 2 mg of oral Ativan administered in last 24 hours by JESSICA madrid. Case discussed with nursing staff. Case discussed with counselor. On my examination today, the patient remains anxious, dysphoric, tearful. She continues to endorse hopeless feelings. She says that she spoke with her mother but this made her feel worse because she feels like her mother accuses her of being "manipulative" when she asks for help. She feels overwhelmed. No acute suicidal ideation. No side effects from medications. Continues to complain of left knee pain, but no other acute physical complaints. Vital Signs Temp Pulse Resp BP Pulse Ox 01/04/18 05:21 97.6 F 69 17 113/58 L 96 Intake and Output 01/04/18 01/04/18 01/04/18 06:59 14:59 22:59 Intake Total 360 / 360 Balance 360 / 360 Intake: Oral 360 / 360 Laboratory Results - last 24 hr 01/04/18 01/04/18 07:33 07:53 WBC 2.6 L RBC 3.84 L Hgb 12.7 Hct 37.5 MCV 97.7 MCH 33.1 MCHC 33.9 RDW 14.2 Plt Count 128 L MPV 8.6 Neut % (Auto) 52.3 Lymph % (Auto) 38.2 Rhea % (Auto) 6.3 Eos % (Auto) 2.8 Baso % (Auto) 0.4 Neut # (Auto) 1.4 L Lymph # (Auto) 1.0 Rhea # (Auto) 0.2 Eos # (Auto) 0.1 Baso # (Auto) 0.0 WBC Differential . Differential Comment Auto diff final Sodium 144 Potassium 3.3 L Chloride 108 H Carbon Dioxide 27.5 Anion Gap 9 BUN 5 L Creatinine 0.53 Estimated GFR Greater than 89 Random Glucose 125 H Calcium 8.2 L Total Bilirubin 0.7 AST 21 ALT 17 Alkaline Phosphatase 104 Total Protein 6.1 L Albumin 2.9 L Labs reviewed. Ongoing leukopenia and now thrombocytopenia. Does not appear to be dilutional though as hemoglobin is stable. EKG sinus rhythm with QTc 440ms, not prolonged. Impressions Knee X-Ray 01/03/18 00:00 CONCLUSION: No evidence of recent bony injury. Knee MRI 01/04/18 00:00 CONCLUSION: Complete tear of the anterior cruciate ligament Bone contusion medial femoral condyle and lateral tibial plateau Grade 2 injury of the femoral attachment of the medial collateral ligament. Review of Systems All other systems reviewed negative except as stated in HPI Mental Status Examination Appearance: Appropriate Consciousness: Alert Orientation: x4 Motor Activity: Other (No abnormal motor movements noted) Speech: Unremarkable Language: Adequate Fund of Knowledge: Adequate Attention and Concentration: Adequate Memory: Unremarkable (Grossly intact on clinical exam) Mood: Other (Depressed) Affect: Other (Restricted, tearful) Thought Process & Associations: Intact Thought Content: Appropriate Hallucination Type: None Delusion Type: None Suicidal Ideation: No Suicidal Plan: No Suicidal Intention: No Homicidal Ideation: No Homicidal Plan: No Homicidal Intention: No Insight: Fair Judgment: Impulsive Mental Status Exam Remarks: No signs of withdrawal on exam. Assessment and Plan - Assessment (1) Bipolar disorder, current episode depressed, severe, without psychotic features Code(s): F31.4 - Bipolar disorder, current episode depressed, severe, without psychotic features Status: Acute (2) Alcohol use disorder, moderate, dependence Code(s): F10.20 - Alcohol dependence, uncomplicated Status: Acute - Plan Plan: Titrate Seroquel to 100 mg in the morning and 200 mg at bedtime for additional mood stabilization. Continue lithium as ordered with plans for lithium level later in the week. Hospitalist input noted and appreciated. Neurology input noted and appreciated. I note that the patient has been started on Depakote. EEG is ordered. Continue to monitor on the inpatient unit. Continue other medications and care as ordered. Justification for Continued Inpatient Stay: Medication changes. Concern for impairment in safety. Risk for decompensation in less restrictive environment. Discharge Planning: Pending psychiatric stabilization. Request Healthcare Surrogate/Guardian Advocate?: No
--- NOTE | 2018-01-04 15:06 | MR ---
EXAM DATE: 01/04/2018 2:29 PM EDT AGE/SEX: 42 years / Female INDICATIONS: . Post fall, felt and heard pop in left knee, knee instability, pain. CLINICAL DATA: This is the patient's subsequent encounter. Patient reports that signs and symptoms h ave been present for 3 days and indicates a pain score of 5/10. MEDICAL/SURGICAL HISTORY: . Anemic, Gestational Diabetes, Kidney Stones section. Cho lecystectomy. Gastric Bypass, Balloon Dilation (x6) COMPARISON: No prior exams available for comparison. TECHNIQUE: Multiplanar, multisequence MRI examination was performed without contrast. FINDINGS: MR of the knee demonstrates marrow reconversion involving the distal femur. There is bone contusion a nd a small microfracture involving the posterior lateral corner of the proximal tibia. There is also bone contusion at the femoral attachment of the medial collateral ligament with grade 2 strain of the ligament. There is complete tear of anterior cruciate ligament. The posterior cruciate ligament inta ct. There are no findings of meniscal tear. Axial images demonstrate no evidence of chondromalacia pa tella. The medial and lateral retinacula are intact. CONCLUSION: Complete tear of the anterior cruciate ligament Bone contusion medial femoral condyle and lateral tibial plateau Grade 2 injury of the femoral attachment of the medial collateral ligament. Electronically signed by: Bryant Jarvis MD 01/04/2018 3:04 PM EDT
--- NOTE | 2018-01-05 00:52 | ECG ---
Date Performed: 01/03/2018 Time Performed: 12:27:49 PTAGE: 42 years EKG: Sinus rhythm NORMAL ECG PREVIOUS TRACING : 12/17/2011 08.29 Since the previous tracing, no significant change noted DOCTOR: Boy Smith Interpretating Date/Time 01/05/2018 00:50:23
[2018-01-05] MEDS: Ibuprofen 600 MG Tablet PO SCH ×2 (05:42→16:24)
[2018-01-05] MEDS: Divalproex 500 MG ER Tablet PO SCH ×2 (08:31→21:34)
[2018-01-05] MEDS: Folic Acid 1 MG Tablet PO SCH (08:31)
[2018-01-05] MEDS: QUEtiapine 100 MG Tablet PO SCH (08:33)
[2018-01-05] MEDS: LORazepam 1 MG Tablet PO PRN ×2 (08:37→13:21)
[2018-01-05] MEDS: Famotidine 20 MG Tablet PO SCH ×2 (09:21→21:34)
--- NOTE | 2018-01-05 12:41 | P.PNPSY ---
Subjective Chief Complaint: Depression, suicide attempt by cutting Remarks: Patient seen and examined with nurse and counselor. Chart reviewed. Case discussed with nursing staff. Case discussed in treatment team. On my examination today, the patient says that she feels "sad, I can't stop crying." Feels like she is dredging up "bad memories and feelings" from her past. She cannot tolerate the company of others and is withdrawn in her room. She endorses ongoing suicidal ideation noting "what's the point of even trying [to go on in life]." No reported urge to hurt self on inpatient unit. She remains overwhelmed and says that with her knee injury and other issues "I feel like I' m right back at square one." No side effects from medications. No physical complaints. Vital Signs Temp Pulse Resp 01/05/18 06:03 98.1 F 87 18 Intake and Output 01/04/18 01/05/18 01/05/18 22:59 06:59 14:59 Intake Total 240 / 240 Balance 240 / 240 Intake: Oral 240 / 240 Labs reviewed. Impressions Knee MRI 01/04/18 00:00 CONCLUSION: Complete tear of the anterior cruciate ligament Bone contusion medial femoral condyle and lateral tibial plateau Grade 2 injury of the femoral attachment of the medial collateral ligament. Review of Systems All other systems reviewed negative except as stated in HPI Mental Status Examination Appearance: Disheveled (Mild) Consciousness: Alert Orientation: x4 Motor Activity: Other (No motoric abnormalities noted. No signs of withdrawal noted. No ictal activity noted.) Speech: Unremarkable Language: Adequate Fund of Knowledge: Adequate Attention and Concentration: Adequate Memory: Unremarkable (Grossly intact on clinical exam) Mood: Other (Remains depressed) Affect: Other (Restricted and tearful at times) Thought Process & Associations: Intact Thought Content: Appropriate Hallucination Type: None Delusion Type: None Suicidal Ideation: Yes Suicidal Plan: No Suicidal Intention: No Homicidal Ideation: No Homicidal Plan: No Homicidal Intention: No Insight: Fair Judgment: Impulsive Assessment and Plan - Assessment (1) Bipolar disorder, current episode depressed, severe, without psychotic features Code(s): F31.4 - Bipolar disorder, current episode depressed, severe, without psychotic features Status: Acute (2) Alcohol use disorder, moderate, dependence Code(s): F10.20 - Alcohol dependence, uncomplicated Status: Acute - Plan Plan: Titrate Seroquel to 100 mg in the morning and 300 mg at bedtime for mood stabilization. Continue lithium as ordered with plans to obtain lithium level over the weekend. We will also obtain Depakote level over the weekend. Hospitalist and PT input noted and appreciated. Continue to monitor on the inpatient unit. Continue other medications and care as ordered. Justification for Continued Inpatient Stay: Monitoring for impairment in safety. Medication changes. High risk for decompensation in less restrictive environment. Discharge Planning: Pending psychiatric stabilization. PT is recommending PT at rehab after discharge, unclear if this is covered by her insurer. Case discussed with counselor. Request Healthcare Surrogate/Guardian Advocate?: No
--- NOTE | 2018-01-05 13:43 | P.PN ---
Subjective Interval history: Follow-up on patient with left knee pain. Patient seen and examined. Discussed MRI findings with patient. Discussed use of hinged knee brace. We will have physical therapy come back in educate patient on how to unlock knee brace so that she can bend the knee to 90 with sitting. Discussed outpatient surgical treatment options. Patient denies any other acute medical complaints. Physical Exam Vital signs: Vital Signs 01/05/18 06:03 Temperature 98.1 F Pulse Rate 87 Respiratory Rate 18 Intake & Output 01/04/18 01/05/18 01/05/18 18:59 06:59 18:59 Intake Total 360 / 360 240 / 240 Balance 360 / 360 240 / 240 Intake: Oral 360 / 360 240 / 240 Narrative: GENERAL: Well-developed well-nourished obese female in no acute distress. Awake and alert. Oriented 4. SKIN: Warm and dry. HEAD: Atraumatic. Normocephalic. EYES: Pupils equal and round. No scleral icterus. No injection or drainage. ENT: No nasal bleeding or discharge. Mucous membranes pink and moist. Poor dentition. NECK: Trachea midline. CARDIOVASCULAR: Regular rate and rhythm. RESPIRATORY: No accessory muscle use. Clear to auscultation. Breath sounds equal bilaterally. GASTROINTESTINAL: Abdomen soft, non-tender, nondistended. MUSCULOSKELETAL: Extremities without clubbing, cyanosis, or edema. LLE in hinged knee brace. NEUROLOGICAL: Awake and alert. No obvious cranial nerve deficits. Motor grossly within normal limits. Able to move all extremities spontaneously. Normal speech. PSYCHIATRIC: Appropriate mood and affect; Results - Labs CBC & Chem 7: 01/04/18 07:53 01/04/18 07:33 - Imaging Impressions Knee MRI 01/04/18 00:00 CONCLUSION: Complete tear of the anterior cruciate ligament Bone contusion medial femoral condyle and lateral tibial plateau Grade 2 injury of the femoral attachment of the medial collateral ligament. Assessment and Plan - Plan 42-year-old female noted under Saavedra act for suicidal ideation 42-year-old female noted under Saavedra act for suicidal ideation Depression Anxiety PTSD Suicidal ideation -Management per psychiatric team Acute on chronic left knee pain History of osteoarthritis bilateral knees XR Left knee with no acute fractures MR left knee shows complete tear of the ACL, bone contusions and grade 2 injury medial collateral ligament -continue with PT -S PT come back and educate patient on how to lock and unlock hinge knee brace -To clarify, patient does not have to have the brace on 21/11. Purpose of the brace is to prevent patient's knee from giving out and her falling. Recommended she have the brace on and locked at 0 with all weightbearing activities otherwise patient can take the brace off or unlock it and bend the knee while seated. -Ultram prn pain -fall precautions -Recommend patient follow-up with orthopedist as an outpatient and discuss possible surgical intervention Alcohol abuse History of benzodiazepine withdrawal seizure Serum alcohol 153 UDS neg -Neurology following. Resumed on Depakote for possible history of seizure disorder and mood control. EEG ordered/pending. -[facility] protocol -Thiamine/multivitamin/folic acid daily -Monitor for seizure activity -seizure precautions Bacteruria -Repeat UA here with moderate bacteria, culture indicated. UCX + mixed gram pos mohan, likely contaminants. -Discontinue Keflex Neutropenia Thrombocytopenia Suspect 2/2 Keflex -Keflex discontinued as above -recheck CBC in 2-3 days Hypokalemia K 3.3 -po repletion ordered -repeat BMP in 2-3 days DVT prophylaxis -Patient is ambulatory Discussed Condition With: patient, nursing staff, Dr. Polo
[2018-01-05] MEDS: Lidocaine 5% Patch T-DERMAL SCH (16:23)
--- NOTE | 2018-01-05 17:40 | MG ---
cc: Jonna Ware MD, Mandeep MD ELECTROENCEPHALOGRAM NUMBER: [id number] REFERRING PHYSICIAN: Omar Antonio MD CLINICAL HISTORY: In room 2604. Hyperventilation and photic done. Fair hyperventilatory effort. EEG is awake and drowsy. No imaging. Saavedra Acted for feeling down and suicidal. Binge drinking. Attempting to cut herself. History of anxiety, benzo abuse, gastric bypass. MEDICATIONS: 1. Depakote. 2. Folic acid. 3. Tye. 4. Seroquel. 5. Thiamine. 6. Ultram. 7. Ativan. DESCRIPTION OF RECORD: The patient has what looks like some faster frequency consistent with beta waves. There is also some artifact. Photic stimulation is done at the beginning with a driving response. At times, there is some normal alpha of 8 Hz. Hyperventilation was done with good effort. I do not appreciate any epileptic activity. IMPRESSION: Fairly normal background electroencephalogram without any epileptiform features. Clinical correlation. Some beta waves may be medicine effect, but otherwise unremarkable study. MD OREN Aquino/alanis , 04:52 PM , 04:57 PM
[2018-01-06] MEDS: LORazepam 1 MG Tablet PO PRN ×2 (02:14→10:41)
[2018-01-06] MEDS: Divalproex 500 MG ER Tablet PO SCH ×2 (10:39→21:20)
[2018-01-06] MEDS: Lidocaine 5% Patch T-DERMAL SCH (10:39)
[2018-01-06] MEDS: Folic Acid 1 MG Tablet PO SCH (10:39)
[2018-01-06] MEDS: QUEtiapine 100 MG Tablet PO SCH (10:39)
[2018-01-06] MEDS: Famotidine 20 MG Tablet PO SCH ×2 (10:39→21:20)
[2018-01-06 12:50] LABS: Baso % (Auto) 0.5 % (0.0-2.0); Eos # (Auto) 0.1 th/mm3 (0.0-0.4); Eos % (Auto) 1.7 % (0.0-4.0); Hematocrit 43.2 % (35.0-46.0); Hemoglobin 14.4 gm/dL (11.6-15.3); Lymph # (Auto) 1.2 th/mm3 (1.0-4.8); Lymph % (Auto) 29.9 % (9.0-44.0); Mean Corpuscular HGB Conc 33.3 % (32.0-36.0); Mean Corpuscular Hemoglobin 33.3 pg (27.0-34.0); Mean Platelet Volume 9.4 fL (7.0-11.0); Mono # (Auto) 0.3 th/mm3 (0.0-0.9); Mono % (Auto) 6.8 % (0.0-8.0); Neut # (Auto) 2.4 th/mm3 (1.8-7.7); Neut % (Auto) 61.1 % (16.0-70.0); Platelet Count 132 th/mm3 (150-450); Red Blood Count 4.33 mil/mm3 (4.00-5.30); Red Cell Distribution Width 14.2 % (11.6-17.2); White Blood Count 3.9 th/mm3 (4.0-11.0)
--- NOTE | 2018-01-06 13:08 | P.PNPSY ---
Subjective Chief Complaint: Depression, suicide attempt by cutting Remarks: Reviewed electronic medical records and discussed case with staff. Follow-up was conducted in the exam room with ANI Perry present. Patient states that emotionally she is "feeling a little better". Still states that she is suffering from anxiety and having some difficulty sleeping. She reports that she wakes up in a panic. She complained of a "buzzing in her ears" and stated that her hair has been falling out at a faster rate. Patient does have a history of gastric bypass in 2004. I did order multivitamins calcium chews and B12 for supplementation as she supposed to be on these post gastric bypass. Additionally, she complained of nausea and vomiting so I placed an order for as needed Zofran. Mental Status Examination Appearance: Disheveled (Mild) Consciousness: Alert Orientation: x4 Motor Activity: Other (No motoric abnormalities noted. No signs of withdrawal noted. No ictal activity noted.) Speech: Unremarkable Language: Adequate Fund of Knowledge: Adequate Attention and Concentration: Adequate Memory: Unremarkable (Grossly intact on clinical exam) Mood: Other (Remains depressed) Affect: Other (Restricted and tearful at times) Thought Process & Associations: Intact Thought Content: Appropriate Hallucination Type: None Delusion Type: None Suicidal Ideation: Yes Suicidal Plan: No Suicidal Intention: No Homicidal Ideation: No Homicidal Plan: No Homicidal Intention: No Insight: Fair Judgment: Impulsive Assessment and Plan - Plan Plan: Patient will be reevaluated Monday by the attending psychiatrist. Continue with current treatment plan. Justification for Continued Inpatient Stay: Moving this patient to a less restrictive environment would likely result in decompensation. Request Healthcare Surrogate/Guardian Advocate?: No
[2018-01-06 13:23] LABS: Anion Gap 7 meq/L (5-15); Blood Urea Nitrogen 5 mg/dL (7-18); Calcium 9.1 mg/dL (8.5-10.1); Carbon Dioxide 25.2 meq/L (21.0-32.0); Chloride 107 meq/L (98-107); Glomerular Filtration Rate Greater Than 89 mL/min (>89); Glucose,Random 114 mg/dL (74-106); Magnesium 2.1 mg/dL (1.5-2.5); Potassium 4.4 meq/L (3.5-5.1); Sodium 139 meq/L (136-145)
[2018-01-07] MEDS: Lidocaine 5% Patch T-DERMAL SCH (08:25)
[2018-01-07] MEDS: Divalproex 500 MG ER Tablet PO SCH ×2 (08:25→20:54)
[2018-01-07] MEDS: Folic Acid 1 MG Tablet PO SCH (08:25)
[2018-01-07] MEDS: QUEtiapine 100 MG Tablet PO SCH (08:26)
[2018-01-07] MEDS: Famotidine 20 MG Tablet PO SCH ×2 (08:26→20:54)
[2018-01-07 09:57] LABS: Anion Gap 7 meq/L (5-15); Blood Urea Nitrogen 8 mg/dL (7-18); Calcium 8.5 mg/dL (8.5-10.1); Carbon Dioxide 28.3 meq/L (21.0-32.0); Chloride 106 meq/L (98-107); Glomerular Filtration Rate Greater Than 89 mL/min (>89); Glucose,Random 58 mg/dL (74-106); Potassium 3.4 meq/L (3.5-5.1); Sodium 141 meq/L (136-145); Valproic Acid 34 mcg/mL (50-100)
--- NOTE | 2018-01-07 12:27 | P.PNPSY ---
Subjective Chief Complaint: Bipolar disorder without psychotic features. Alcohol use dependence Remarks: Reviewed electronic medical records and discussed case with staff. Follow-up was conducted in the patient's with ANI Perry present. Patient is angry as her significant other was served with trespassing and will not be able to come into the hospital to visit with her. She is preoccupied with discharge. Patient stats that she is overwhelmed and has a great deal of anxiety. She states that her 19 year old child lives with friends and her younger child is with other supportive people. Her left knee has an ACL tear and she is wearing a brace. She feels that she does not need to be here , but needs access to a assisted for herself and significant other that has medical problems. She is very emotional about the visitation hours and put the covers over her head to end the conversation. Review of Systems All other systems reviewed negative except as stated in HPI Mental Status Examination Appearance: Disheveled (Mild) Consciousness: Alert Orientation: x4 Motor Activity: Other (No motoric abnormalities noted. No signs of withdrawal noted. No ictal activity noted.) Speech: Unremarkable Language: Adequate Fund of Knowledge: Adequate Attention and Concentration: Adequate Memory: Unremarkable (Grossly intact on clinical exam) Mood: Other (Remains depressed) Affect: Other (Restricted and tearful at times) Thought Process & Associations: Intact Thought Content: Appropriate Hallucination Type: None Delusion Type: None Suicidal Ideation: No Suicidal Plan: No Suicidal Intention: No Homicidal Ideation: No Homicidal Plan: No Homicidal Intention: No Insight: Fair Judgment: Impulsive Assessment and Plan - Assessment (1) Bipolar disorder current episode depressed Code(s): F31.30 - Bipolar disorder, current episode depressed, mild or moderate severity, unspecified Status: Acute (2) Alcohol abuse Code(s): F10.10 - Alcohol abuse, uncomplicated Status: Acute - Plan Plan: Patient will be reevaluated Monday by the attending psychiatrist. Continue with current treatment plan. Justification for Continued Inpatient Stay: Moving patient to a less restrictive environment may result in her decompensation. Request Healthcare Surrogate/Guardian Advocate?: No
[2018-01-07] MEDS: LORazepam 1 MG Tablet PO PRN (13:52)
[2018-01-07] MEDS ORDERED: Potassium Chloride 25 MEQ Effervescent Tablet PO ONE (16:32)
--- NOTE | 2018-01-07 16:39 | P.PN ---
Subjective Interval history: Follow-up on patient with left knee pain. Patient seen and examined today. Tearful, depressed. States that her boyfriend is living outside waiting for her to go home. States that she voluntarily signed in due to depression because they lost a child. However her boyfriend got out of the hospital and does not know what to do without her. Otherwise, denies pain and discomfort. Denies SOB/ dyspnea. Denies chest pain, palpitations, headaches, dizziness. Denies fevers, chills, n/v/d. Denies dysuria. Physical Exam Vital signs: Vital Signs 01/07/18 05:15 01/07/18 15:25 01/07/18 15:29 Temperature 97.8 F 98.2 F 98.2 F Pulse Rate 62 106 H 106 H Respiratory Rate 16 18 18 Blood Pressure 94/53 L 116/62 116/62 Pulse Oximetry 99 98 98 Narrative: GENERAL: This is a well-nourished, well-developed patient, in no apparent distress. SKIN: Warm and dry HEENT: Normocephalic. Pupils equal round and reactive. Nose without bleeding. Airway patent. NECK: Trachea midline. CARDIOVASCULAR: Regular rate and rhythm without murmurs, gallops, or rubs. RESPIRATORY: Clear to auscultation. Breath sounds equal bilaterally. No wheezes , rales, or rhonchi. GASTROINTESTINAL: Abdomen soft, non-tender, nondistended. Bowel Sounds normoactive x4. MUSCULOSKELETAL: Extremities without clubbing, cyanosis, or edema. NEUROLOGICAL: Awake and alert. No focal neuro deficit. Moves all extremities. Normal speech. Results - Labs CBC & Chem 7: 01/06/18 12:01 01/07/18 08:28 Laboratory Results - last 24 hr 01/07/18 01/07/18 08:28 08:28 Sodium 141 Potassium 3.4 L D Chloride 106 Carbon Dioxide 28.3 Anion Gap 7 BUN 8 Creatinine 0.67 Estimated GFR Greater than 89 Random Glucose 58 L Calcium 8.5 Valproic Acid 34 L [place] 0.4 L Assessment and Plan - Plan 42-year-old female noted under Saavedra act for suicidal ideation Depression Anxiety PTSD Suicidal ideation -Management per psychiatric team Acute on chronic left knee pain History of osteoarthritis bilateral knees XR Left knee with no acute fractures MR left knee shows complete tear of the ACL, bone contusions and grade 2 injury medial collateral ligament -continue with PT -S PT come back and educate patient on how to lock and unlock hinge knee brace -Patient does not have to have the brace on 21/11. Purpose of the brace is to prevent patient's knee from giving out and her falling. Recommended she have the brace on and locked at 0 with all weightbearing activities otherwise patient can take the brace off or unlock it and bend the knee while seated. -Ultram prn pain. -fall precautions -Recommend patient follow-up with orthopedist as an outpatient and discuss possible surgical intervention -[facility] Prescription Drug Monitoring Database has been queried and verified. Short term use of narcotics with multiple providers and hospital visits. Will not provide patient with narcotics for more than 3 days supply to go home she needs to established with pain management or go to Orthopedic surgeon for management of Left knee pain. Alcohol abuse History of benzodiazepine withdrawal seizure Serum alcohol 153 UDS neg -Neurology following. Resumed on Depakote for possible history of seizure disorder and mood control. EEG ordered/pending. -CIWA protocol -Thiamine/multivitamin/folic acid daily -Monitor for seizure activity -seizure precautions Bacteruria -Repeat UA here with moderate bacteria, culture indicated. UCX + mixed gram pos mohan, likely contaminants. -Discontinue Keflex Neutropenia Thrombocytopenia Suspect 2/2 Keflex -Keflex discontinued as above -recheck CBC in 2-3 days Hypokalemia K 3.3 -po repletion ordered -BMP sudhakar DVT prophylaxis -Patient is ambulatory Stable from Hospitalist standpoint. We will sign off. Reconsult as needed. Thank you. Code Status: Full Code Discussed Condition With: Patient, nurse Discharge Planning: DC disposition by primary team
[2018-01-08] MEDS: Divalproex 500 MG ER Tablet PO SCH (08:52)
[2018-01-08] MEDS: QUEtiapine 100 MG Tablet PO SCH (08:52)
[2018-01-08] MEDS: Famotidine 20 MG Tablet PO SCH ×2 (08:52→20:28)
[2018-01-08] MEDS: Folic Acid 1 MG Tablet PO SCH (08:52)
[2018-01-08] MEDS: Lidocaine 5% Patch T-DERMAL SCH (08:53)
--- NOTE | 2018-01-08 13:52 | P.PNPSY ---
Subjective Chief Complaint: Bipolar disorder without psychotic features. Alcohol use dependence Remarks: Patient seen and examined with nurse. Chart reviewed. Case discussed with nursing staff. Patient noted to be somewhat demanding and med seeking per nursing. Case discussed with counselor. On my exam, patient says she had a rough weekend. She says that she was hearing voices engaged in conversation over the weekend. No SI or HI. Presentation is somewhat manipulative at this point, and some degree of symptom exaggeration to extend stay is possible. Perhaps as evidence of this she subsequently comes up to this provider and says that she has now found a place to live and was wondering if she could be discharged soon. Denies any side effects from medications. No physical complaints. Agreeable to adjustment of Depakote and lithium to bring levels within the therapeutic range. Vital Signs Temp Pulse Resp BP Pulse Ox 01/08/18 05:52 97.5 F L 73 16 90/57 L 96 Intake and Output 01/08/18 01/08/18 01/08/18 06:59 14:59 22:59 Intake Total 360 / 360 Balance 360 / 360 Intake: Oral 360 / 360 Labs reviewed. [place] level 0.4 and Depakote level 34, both subtherapeutic. EEG read as normal with no epileptiform discharges, possible medication effect. Review of Systems All other systems reviewed negative except as stated in HPI Mental Status Examination Appearance: Other (Fair grooming) Consciousness: Alert Orientation: x4 Motor Activity: Other (No motor abnormalities noted. No signs of any withdrawal noted. No ictal activity noted.) Speech: Unremarkable Language: Adequate Fund of Knowledge: Adequate Attention and Concentration: Adequate Memory: Unremarkable (Grossly intact on clinical exam) Mood: Appropriate Affect: Blunt Thought Process & Associations: Intact Thought Content: Appropriate Hallucination Type: None (None presently) Delusion Type: None Suicidal Ideation: No Suicidal Plan: No Suicidal Intention: No Homicidal Ideation: No Homicidal Plan: No Homicidal Intention: No Mental Status Exam Remarks: Insight and judgment are perhaps fair. Assessment and Plan - Assessment (1) Bipolar disorder, current episode depressed, severe, without psychotic features Code(s): F31.4 - Bipolar disorder, current episode depressed, severe, without psychotic features Status: Acute (2) Alcohol use disorder, moderate, dependence Code(s): F10.20 - Alcohol dependence, uncomplicated Status: Acute - Plan Plan: Titrate lithium to 300 mg in the morning and 600 mg at bedtime to try bring level within the therapeutic range. Titrate Depakote to 750 mg twice daily with the same goal. Plan to order follow-up blood levels, most likely on an outpatient basis given patient's stated desire for discharge soon. Monitor overnight to ensure good tolerability of dose adjustment of these medications. Continue Seroquel as ordered. Hospitalist input noted and appreciated. Continue to monitor on the inpatient unit. Continue other medications and care as ordered. Justification for Continued Inpatient Stay: Medication changes. Discharge Planning: Possible discharge tomorrow. Now that the patient has a reported place to stay , home with home PT might be a viable option. In any event, counselor relates that the patient does not have insurance benefits for physical rehabilitation placement and so home with home PT might be the best available option. Request Healthcare Surrogate/Guardian Advocate?: No
[2018-01-08] MEDS: Divalproex 250 MG ER Tablet PO SCH (20:28)
[2018-01-09] MEDS: Divalproex 250 MG ER Tablet PO SCH (08:36)
[2018-01-09] MEDS: Folic Acid 1 MG Tablet PO SCH (08:36)
[2018-01-09] MEDS: QUEtiapine 100 MG Tablet PO SCH (08:37)
[2018-01-09] MEDS: Famotidine 20 MG Tablet PO SCH (08:37)
[2018-01-09] MEDS: Lidocaine 5% Patch T-DERMAL SCH (09:07)
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
== END 2018-01-09 14:20 | disposition home or self-care (01) ==
LOC: NEPJ 15:59 → NEDA 22:45 → H260 01-03
PROVIDERS: ADMIT Psychiatry & Neurology Psychiatry; ATTEND Psychiatry & Neurology Psychiatry